=== PATIENT | male | born 1970 | race Caucasian/White ===

== ENCOUNTER 2018-03-20 21:09 | Observation (INO) | END 2018-03-22 14:56 | disposition home or self-care (01) ==

== ENCOUNTER 2018-09-03 07:17 | Day surgery (SDC) | END 2018-09-03 11:18 | disposition home or self-care (01) ==

== ENCOUNTER 2018-12-10 07:46 | Day surgery (SDC) | payer BC ==
[2018-12-10] VITALS (20 sets, daily range): BP systolic 105–135; BP diastolic 78–99; PULSE 80–100; RESP 10–22; Ht 165.1 cm; Wt 80.6 kg
[~2018-12-10] VITALS: Ht 165.1 cm; Wt 80.6 kg
[~2018-12-10 07:46] MED LIST: ASPI-817 PO; CIMETIDINE 300 MG TAB PO ONE; CLOP75TA27 PO; DIAZEPAM 5 MG TAB PO ONE; DIPHENHYDRAMINE 50 MG CAP PO ONE; FAMOTIDINE 20 MG TAB PO ONE; IBUP-1542 PO; IMDUR; LOVASTATIN; METFORMIN; PREVACID; SOD CHLORIDE 0.45% 1,000 ML IV SCH; [UNRECOGNIZED DRUG - OTHER]
[2018-12-10] MEDS ORDERED: GLIM1TAB2 PO (08:31)
[2018-12-10] MEDS ORDERED: METF100010 PO (08:32)
[2018-12-10] MEDS ORDERED: ATOR-2 PO (08:32)
[2018-12-10] MEDS ORDERED: OMEP20CA16 PO (08:33)
[2018-12-10] MEDS ORDERED: FENO145T37 PO (08:33)
[2018-12-10] MEDS ORDERED: LISI-313 PO (08:33)
[2018-12-10] MEDS ORDERED: METO-319 PO (08:34)
[2018-12-10] MEDS ORDERED: ISOS60TA PO (08:34)
[2018-12-10] MEDS ORDERED: ESCI10TA PO (08:35)
[2018-12-10] MEDS ORDERED: CLOP75TA27 PO (08:36)
[2018-12-10] MEDS ORDERED: ASPI81TA52 PO (08:36)
[2018-12-10] MEDS ORDERED: VERAPAMIL 5 MG INJ ONE (08:37)
[2018-12-10] MEDS ORDERED: IODIXANOL LOCM 100 ML BTL ONE (08:37)
[2018-12-10] MEDS ORDERED: MIDAZOLAM 1 MG/ML 2 ML INJ ONE (08:37)
[2018-12-10] MEDS ORDERED: FENTAnyl 50 MCG/ML VIAL ONE (08:37)
[2018-12-10] MEDS ORDERED: NITROGLYCERIN (IC) 100 MCG/ML INJ ONE (08:37)
[2018-12-10] MEDS ORDERED: HEPARIN 1000 UNITS/ML 10 ML INJ ONE (08:37)
[2018-12-10] MEDS ORDERED: SOD CHLORIDE 0.9% 1,000 ML IV SCH (10:05)
--- NOTE | 2018-12-10 10:05 | SIPON ---
Date/Time of Note Date/Time of Note DATE: 12/10/18 TIME: 10:02 Operative Report Preoperative Diagnosis 1.chest pain Postoperative Diagnosis 1.Patent stents. Nonobstructive cad Operation/Procedure Performed 1.[facility] Surgeon see signature line therapeutic recreation assistant 1.Henry Anesthesia: moderate sedation Estimated blood loss: minimal Transfusion Required none Specimen none Grafts/Implants none Complications none HANNY ASTUDILLO Dec 10, 2018 10:05
[2018-12-10] MEDS ORDERED: morphine 2 MG INJ IV PRN (10:30)
[2018-12-10] MEDS ORDERED: ONDANSETRON 4 MG INJ IV PRN (10:30)
[2018-12-10] MEDS ORDERED: ACETAMINOPHEN 325 MG TAB PO PRN ×2 (10:30→14:30)
[2018-12-10] MEDS ORDERED: AL HYDROX/MG HYDROX/SIMETH 30 ML CUP PO PRN (10:30)
--- NOTE | 2018-12-12 01:52 | RADRPT ---
Vent Rate: 93 bpm RR Interval: 0 msec SC Interval: 122 msec QRS Duration: 84 msec QT Interval: 344 msec QTC Interval: 427 msec P-R-T [place]: 43 - -1 - 21 degrees Normal sinus rhythm Nonspecific T wave abnormality Abnormal ECG Electronically Signed By: Severiano Devine [id number]
== END 2018-12-10 14:30 | disposition home or self-care (01) ==
LOC: SDS 07:46
PROVIDERS: ATTEND Internal Medicine
DX: I25.10 Atherosclerotic heart disease of native coronary artery without angina pectoris (principal); E78.5 Hyperlipidemia, unspecified; I10 Essential (primary) hypertension; I25.2 Old myocardial infarction
CPT/HCPCS: 71045; 80048; 80061; 82962; 85025; 85610; 85730; 93005; 93458; C1887; J1644; J2250; J3010; Q9967; Z7610